=== PATIENT | female | born 1975 | race Caucasian/White ===

== ENCOUNTER 2017-01-18 16:36 | Emergency (ER) | payer OTHER ==
[2017-01-18 17:26] LABS: RED BLOOD COUNT 3.77 M/UL (4.00-5.10); WHITE BLOOD COUNT 16.8 K/UL (4.5-11.0)
[2017-01-18 17:40] LABS: BUN/CREATININE RATIO 9 (0-10)
== END 2017-01-18 22:14 | disposition home or self-care (01) ==
LOC: ER1 16:36
PROVIDERS: Emergency Medicine
DX: K80.50 Calculus of bile duct without cholangitis or cholecystitis without obstruction (principal); D72.829 Elevated white blood cell count, unspecified; F17.210 Nicotine dependence, cigarettes, uncomplicated
CPT/HCPCS: 36415; 80053; 81001; 82150; 83690; 85025; 96374; 96375; 99284; J2270; J2405; J7050; Q9962

== ENCOUNTER → 2017-01-21 | Outpatient (CLI) | payer OTHER | LOC: KOH-I 11:00 | DX: K80.50 Calculus of bile duct without cholangitis or cholecystitis without obstruction (principal); K76.0 Fatty (change of) liver, not elsewhere classified | CPT/HCPCS: 76705 ==

== ENCOUNTER → 2017-01-25 | Outpatient (CLI) | payer OTHER | LOC: KOH-I 12:48 | DX: R10.2 Pelvic and perineal pain (principal) | CPT/HCPCS: 76856 ==

== ENCOUNTER → 2017-02-11 | Outpatient (CLI) | payer OTHER | LOC: NM 14:30 | DX: R10.11 Right upper quadrant pain (principal) | CPT/HCPCS: 78227; A9537; J2805 ==

== ENCOUNTER 2017-02-13 19:21 | Emergency (ER) | payer OTHER ==
[2017-02-13 22:18] LABS: HEMOGLOBIN 14.2 gm/dl (12.3-15.3); RED BLOOD COUNT 4.84 M/UL (4.00-5.10); WHITE BLOOD COUNT 18.8 K/UL (4.5-11.0)
[2017-02-13 22:36] LABS: BUN/CREATININE RATIO 10 (0-10)
== END 2017-02-14 03:48 | disposition home or self-care (01) ==
LOC: ER1 19:21
PROVIDERS: Emergency Medicine
DX: R10.11 Right upper quadrant pain (principal); R10.31 Right lower quadrant pain; R11.2 Nausea with vomiting, unspecified; D72.829 Elevated white blood cell count, unspecified; E78.5 Hyperlipidemia, unspecified; F17.200 Nicotine dependence, unspecified, uncomplicated; Z79.899 Other long term (current) drug therapy
CPT/HCPCS: 36415; 80053; 81001; 82150; 83690; 84703; 85025; 87086; 96374; 96375; 99284; J2270; J2405; J7050; Q9962

== ENCOUNTER → 2017-03-04 | Outpatient (CLI) | payer OTHER | LOC: EXRD 11:26 | DX: R11.2 Nausea with vomiting, unspecified (principal); R10.9 Unspecified abdominal pain | CPT/HCPCS: 74000 ==

== ENCOUNTER 2021-02-02 13:44 | Emergency (ER) | payer OTHER ==
[~2021-02-02 13:44] MED LIST: ASPIRIN EC81 MG PO; ATORVASTATIN CA20 MG PO; AUGMENTIN XR 11 EACH PO; CARVEDILOL3.125 MG PO; CLOPIDOGREL75 MG PO; LIORESAL TAB 1010 MG PO; LISINOPRIL5 MG PO; MELOXICAM7.5 MG PO; NEURONTIN600 MG PO; NITROGLYCERIN0.4 MG SL; PANTOPRAZOLE SO40 MG PO; PERCOCET 5-3251 EACH PO; PHENERGAN 12.12.5 M1 PO; ZOFRAN ODT 4 MG4 MG SL
== END 2021-02-02 16:00 | disposition left against medical advice (07) ==
LOC: ER1 13:44
DX: Z53.21 Procedure and treatment not carried out due to patient leaving prior to being seen by health care provider (principal)
CPT/HCPCS: 93005

== ENCOUNTER 2021-08-26 16:09 | Emergency (ER) | payer OTHER | END 2021-08-26 17:51 | disposition home or self-care (01) | LOC: ER1 16:09 | DX: S93.402A Sprain of unspecified ligament of left ankle, initial encounter (principal); S90.32XA Contusion of left foot, initial encounter; Z88.0 Allergy status to penicillin; F17.200 Nicotine dependence, unspecified, uncomplicated; W19.XXXA Unspecified fall, initial encounter | CPT/HCPCS: 73610; 99283 ==

== ENCOUNTER → 2021-09-11 | Outpatient (CLI) | payer OTHER | LOC: KOH-I 15:38 | DX: S92.102A Unspecified fracture of left talus, initial encounter for closed fracture (principal) | CPT/HCPCS: 73610; 73630 ==

== ENCOUNTER → 2022-01-18 | Outpatient (CLI) | payer OTHER | LOC: EXRD 14:43 | DX: R05.9 Cough, unspecified (principal); R06.00 Dyspnea, unspecified; R91.8 Other nonspecific abnormal finding of lung field | CPT/HCPCS: 71046 ==

== ENCOUNTER → 2022-01-31 | Outpatient (CLI) | payer OTHER | LOC: ECHO 11:45 | DX: I42.9 Cardiomyopathy, unspecified (principal); R07.9 Chest pain, unspecified; R06.02 Shortness of breath | CPT/HCPCS: ECHO; 93306 ==